=== PATIENT | female | born 2000 | race African-American/Black ===

== ENCOUNTER 2022-08-07 08:01 | Emergency (ER) | payer OTHER, MEDICAID ==
[~2022-08-07] VITALS: Ht 165.1 cm; Wt 122.0 kg
[2022-08-07 08:03] VITALS: BP 136/82
[2022-08-07] MEDS ORDERED: PREDNISONE 20MG TABLET PO STA (08:33)
[2022-08-07] MEDS ORDERED: P50 MT (08:35)
[2022-08-07] MEDS ORDERED: ALBU6.7H3 INH (08:35)
[2022-08-07] MEDS ORDERED: ALBUTEROL (0.083%) 2.5MG/3ML NEB HHN STA (08:36)
[2022-08-07] MEDS ORDERED: IPRATROPIUM BROMIDE (0.02%) 0.5MG/2.5ML NEB HHN STA (08:36)
[2022-08-07] MEDS ORDERED: ALBUTEROL 6.7GM HFA INHALER ORI STA (09:30)
== END 2022-08-07 10:04 | disposition home or self-care (01) ==
LOC: ER 08:12
DX: J45.901 Unspecified asthma with (acute) exacerbation (principal); Z68.41 Body mass index [BMI] 40.0-44.9, adult
CPT/HCPCS: 81025; 94640; 99283; J7512; Z7610

== ENCOUNTER 2024-09-09 20:43 | Emergency (ER) | payer MEDICAID, OTHER ==
[~2024-09-09] VITALS: Ht 165.1 cm; Wt 120.0 kg
[~2024-09-09 20:43] MED LIST: ALBU6.7H3 INH; P50 MT
[2024-09-09 20:48] VITALS: O2SAT 99
[2024-09-10] MEDS: ACETAMINOPHEN 325MG TABLET PO ONE (01:00)
[2024-09-10] MEDS: METOCLOPRAMIDE HCL 10MG TABLET PO ONE (01:00)
[2024-09-10] MEDS: DIPHENHYDRAMINE 25MG CAPSULE PO ONE (01:00)
[2024-09-10] MEDS: KETOROLAC 15MG/ML VIAL IM ONE (01:00)
[2024-09-10 03:33] LABS: CHLORIDE 106 mEq/L (98-107); POTASSIUM 3.8 mEq/L (3.5-5.1); SODIUM 141 mEq/L (136-145)
[2024-09-10 03:34] LABS: CARBON DIOXIDE 26 mEq/L (21-32)
[2024-09-10 03:39] LABS: CREATININE 0.9 mg/dL (0.6-1.0); GLUCOSE 94 mg/dL (70-105); UREA NITROGEN BLOOD 11 mg/dL (9-23)
[2024-09-10 05:01] VITALS: BP 121/88; PULSE 77; RESP 18; TEMP 36.61404; O2SAT 97
== END 2024-09-10 07:44 | disposition home or self-care (01) ==
LOC: ER 20:43
DX: R51.9 Headache, unspecified (principal); R11.0 Nausea; J45.909 Unspecified asthma, uncomplicated
CPT/HCPCS: 99283; 80048; 36415; Q0163; J8597; J1885

== ENCOUNTER 2024-11-25 07:43 | Emergency (ER) | payer OTHER ==
[~2024-11-25] VITALS: Ht 167.6 cm; Wt 86.0 kg
[2024-11-25 07:48] VITALS: O2SAT 98
[2024-11-25 07:56] VITALS: BP 130/62; PULSE 86; RESP 16; TEMP 37.1; O2SAT 100
== END 2024-11-25 08:44 | disposition home or self-care (01) ==
LOC: ER 07:43
DX: R68.84 Jaw pain (principal); J45.909 Unspecified asthma, uncomplicated; R00.2 Palpitations
CPT/HCPCS: 71045; 93005; 99283

== ENCOUNTER 2025-07-03 08:51 | Emergency (ER) | payer MEDICAID, OTHER ==
[~2025-07-03] VITALS: Ht 160 cm; Wt 109.0 kg
[2025-07-03 09:21] VITALS: TEMP 36.8
[2025-07-03] MEDS: IPRATROPIUM BROMIDE (0.02%) 0.5MG/2.5ML NEB HHN SCH (09:40)
[2025-07-03] MEDS: ALBUTEROL (0.083%) 2.5MG/3ML NEB HHN SCH (09:40)
[2025-07-03 09:43] VITALS: PULSE 80; RESP 17; O2SAT 97
[2025-07-03 10:04] LABS: BASOPHILS % 1.2 % (0.0-2.0); EOSINOPHILS % 5.9 % (0.0-5.0); HEMATOCRIT. 40.3 % (36.0-48.0); HEMOGLOBIN. 13.2 g/dL (12.0-16.0); LYMPHOCYTES % 37.8 % (20.0-50.0); MEAN PLATELET VOLUME 8.0 fl (7.4-10.4); MONOCYTES % 5.5 % (2.0-8.0); NEUTROPHILS % 49.6 % (40.0-76.0); PLATELET 295 x1000/uL (130-400); RED BLOOD CELL COUNT 4.90 mill/uL (4.2-5.4); RED CELL DISTRIBUTION WIDTH 15.8 % (11.6-14.6)
[2025-07-03 10:22] LABS: CREATININE 0.9 mg/dL (0.6-1.0); UREA NITROGEN BLOOD 10 mg/dL (9-23)
[2025-07-03 10:23] LABS: HCG SCREEN NEGATIVE
[2025-07-03 10:24] LABS: ASPARTATE AMINOTRANSFERASE 12 IU/L (<34); BILIRUBIN DIRECT 0.2 mg/dL (<=3.0); BILIRUBIN TOTAL 0.7 mg/dL (0.1-1.0); PROTEIN TOTAL 7.5 g/dL (6.0-8.3)
[2025-07-03] MEDS: PREDNISONE 20MG TABLET PO ONE (10:35)
[2025-07-03] MEDS: SODIUM CHLORIDE 0.9% 1,000 ML IV ONE (10:36)
[2025-07-03] MEDS: MAGNESIUM 2 G PREMIX 50 ML IV ONE (10:43)
[2025-07-03] MEDS ORDERED: ALBU18HF2 IH (12:20)
[2025-07-03] MEDS ORDERED: P50 MT (12:21)
[2025-07-03 12:31] VITALS: BP 125/77; PULSE 69; RESP 15; O2SAT 98
== END 2025-07-03 12:32 | disposition home or self-care (01) ==
LOC: ER 08:51
DX: J45.901 Unspecified asthma with (acute) exacerbation (principal); Z79.899 Other long term (current) drug therapy
CPT/HCPCS: 80076; 80048; 84703; 83735; 85025; 36415; 71045; 94640; 93005; 96365; 99285; J7512; J3475; Z7610; J7030